=== PATIENT | male | born 1955 | race Caucasian/White ===

== ENCOUNTER 2019-01-24 18:32 | Inpatient (IN) | payer OTHER ==
[~2019-01-24] VITALS: Ht 167.6 cm; Wt 86.1 kg
[2019-01-24] MEDS ORDERED: IBUPROFEN 600 MG TAB PO ONE ×2 (18:48→19:00)
[2019-01-24 19:40] LABS: Calcium 9.5 mg/dL (8.5-10.1); Potassium 4.7 mmol/L (3.5-5.1)
[2019-01-24 19:43] LABS: Lactic Acid w/Reflex 2.5 mmol/L (0.4-2.0)
[2019-01-24 19:44] LABS: BUN/Creatinine Ratio 12.4; Bilirubin, Total 0.5 mg/dL (0.2-1.0); Total Protein 8.3 g/dL (6.4-8.2)
[2019-01-24 20:03] LABS: Hematocrit 39.9 % (41.0-53.0); Hemoglobin 13.5 g/dL (13.5-17.5); Mean Corpuscular Hemoglobin 32.3 pg (28.0-32.0); Mean Corpuscular Hgb Conc. 33.8 g/dL (32.0-36.0); Mean Corpuscular Volume 95.7 fL (80.0-100.0); Platelet Count (auto) 177 10^3/uL (140-450); Red Blood Cells 4.16 10^6/uL (4.5-5.90); Red Cell Distribution Width 12.6 % (11.8-14.3); White Blood Cell 9.4 10^3/uL (4.4-10.8)
[2019-01-24 20:07] LABS: Basophils % (manual) 0 (0.0-2.0); Blast Cells 0; Metamyelocytes % 0; Myelocytes % 0; Promyelocytes % 0; Reactive Lymphocytes 0
[2019-01-24] MEDS ORDERED: ACETAMINOPHEN 325 MG TAB PO ONE (20:15)
[2019-01-24 20:30] LABS: INR 0.95 (0.9-1.15); Partial Thromboplastin Time 24.5 sec (23.64-32.05)
[2019-01-24 20:48] LABS: Band Neutrophils % (manual) 2; Eosinophils % (manual) 1 (0-7); Lymphocytes % (manual) 10 (10.0-50.0); Monocytes % (manual) 5 (0-12)
[2019-01-24] MEDS ORDERED: cefTRIAXone 1GM/50ML D5W 50 ML IV ONE (21:45)
[2019-01-24 22:04] LABS: Urine Bacteria NONE SEEN /hpf (None Seen); Urine Blood Negative /uL (Negative); Urine Hyaline Cast FEW /lpf (0 - 2); Urine Mucus FEW (None Seen); Urine Specific Gravity 1.017 (1.001-1.035); Urine WBC 1 /hpf (0 - 3)
[2019-01-25] VITALS (7 sets, daily range): BP systolic 124–149; BP diastolic 61–88
[2019-01-25] MEDS ORDERED: TEMAZEPAM 15 MG CAP PO PRN (00:45)
[2019-01-25] MEDS ORDERED: HYDROcodone-ACET 5/325MG TAB PO PRN (00:45)
[2019-01-25] MEDS ORDERED: LEVOFLOXACIN 250MG 50 ML IV ONE (00:45)
[2019-01-25] MEDS ORDERED: ACETAMINOPHEN 325 MG TAB PO PRN (00:45)
[2019-01-25] MEDS ORDERED: DEXTROSE (50%) 50ML SYRG IV PRN (00:45)
[2019-01-25] MEDS ORDERED: ONDANSETRON HCL 4 MG/2 ML VIAL IV PRN (00:45)
[2019-01-25] MEDS ORDERED: SODIUM CHLORIDE 0.9% 500 ML IV ONE (00:45)
[2019-01-25] MEDS: SODIUM CHLORIDE 0.9% 1,000 ML IV SCH ×3 (00:49→21:30)
[2019-01-25] MEDS ORDERED: NITROGLYCERIN 0.4 MG SL TAB SL PRN (01:00)
[2019-01-25] MEDS ORDERED: MORPHINE SULF INJ 2 MG/ML SYRINGE 1ML IV PRN (01:00)
--- NOTE | 2019-01-25 02:00 | NUR ---
Telemetry admit from ER RANDA GUTIERREZ admitted to Telemetry unit. Patient oriented to Hoa Montanez, primary RN, unit, room, bed, and unit policies regarding patient care and visiting hours. Patient now on continuous telemetry monitoring, tele box # 16. Patient placed on bedside oxygen, weighed by bedscale and encouraged to call if they need something. All questions and concerns addressed, patient verbalized understanding.
[2019-01-25] MEDS: ACCU-CHEK COMFORT CURVE STRIP VI SCH ×4 (06:25→23:48)
[2019-01-25] MEDS: PANTOPRAZOLE 40 MG TAB PO SCH (06:26)
[2019-01-25] MEDS: InsuLIN REG 1unit/0.01ml Soln (100units/ml) SC SCH ×4 (06:36→23:49)
--- NOTE | 2019-01-25 09:00 | NUR ---
PT DISLODGED IV CATHETER FROM LAC#18, CATHETER APPEARS INTACT. DRESSING PLACED TO SITE, NO ACTIVE BLEEDING. IV INSERTED TO LEFT HAND #20, FLUSHES WELL, IV FLUIDS RESUMED PER ORDER, CATHETER SECURED. PT TOLERATED PROCEDURE WELL. BED LOCKED AND IN LOWEST POSITION, CALL LIGHT WITHIN REACH. WILL CONTINUE TO MONITOR.
[2019-01-25] MEDS: ASPirin 81 mg TAB PO SCH (10:07)
[2019-01-25] MEDS ORDERED: IPRATROPIUM BROM 0.5 MG/2.5ML INH SOL NEB ONE (12:30)
[2019-01-25] MEDS ORDERED: ALBUTEROL SULF 2.5 MG/0.5ML(0.5%) NEB SOLN NEB ONE (12:30)
--- NOTE | 2019-01-25 12:34 | NUR ---
DR RALPH IN TO SEE PT. EVALUATED PT. ORDER FOR BREATHING Tx INPUT. RT DEPT. PAGED, AWARE OF ORDER.
[2019-01-25] MEDS ORDERED: ALBUTEROL SULF 2.5 MG/0.5ML(0.5%) NEB SOLN NEB PRN (15:30)
--- NOTE | 2019-01-25 18:12 | NUR ---
assessment Per consult no PCP. Savanah gomez to see patient for PCP. Addendum: 01/25/19 at 1812 by Savanah Gonzalez Amended: Links added.
[2019-01-25] MEDS: ALBUTEROL SULF 2.5 MG/0.5ML(0.5%) NEB SOLN NEB SCH ×2 (18:19→22:35)
[2019-01-25] MEDS: IPRATROPIUM BROM 0.5 MG/2.5ML INH SOL NEB SCH ×2 (18:19→22:35)
[2019-01-25] MEDS ORDERED: RAMI2.5C33 PO (19:09)
[2019-01-25] MEDS ORDERED: SIMV-13 PO (19:09)
[2019-01-25] MEDS ORDERED: ATEN-60 PO (19:11)
[2019-01-25] MEDS ORDERED: GABA100C9 PO (19:11)
[2019-01-25] MEDS ORDERED: GLIP5TAB12 PO (19:12)
[2019-01-25] MEDS ORDERED: ASPI-404 PO (19:12)
[2019-01-25] MEDS: LEVOFLOXACIN 250MG 50 ML IV SCH (21:31)
[2019-01-25] MEDS: methylPREDNISolone SOD SUCC 125 MG/2 ML VL IV SCH (21:31)
[2019-01-26] MEDS: IPRATROPIUM BROM 0.5 MG/2.5ML INH SOL NEB SCH ×6 (02:48→22:21)
[2019-01-26] MEDS: ALBUTEROL SULF 2.5 MG/0.5ML(0.5%) NEB SOLN NEB SCH ×6 (02:48→22:21)
[2019-01-26 06:18] VITALS: BP 118/67
[2019-01-26] MEDS: ACCU-CHEK COMFORT CURVE STRIP VI SCH ×3 (06:30→20:00)
[2019-01-26] MEDS: PANTOPRAZOLE 40 MG TAB PO SCH (06:30)
[2019-01-26] MEDS: InsuLIN REG 1unit/0.01ml Soln (100units/ml) SC SCH ×3 (06:31→20:49)
[2019-01-26 06:46] LABS: Basophils # (auto) 0 uL; Basophils % (auto) 0.2 % (0.0-2.0); Eosinophils # (auto) 0 uL; Hemoglobin 12.1 g/dL (13.5-17.5); Lymphocytes # (auto) 0.3 uL; Lymphocytes % (auto) 4.2 % (10.0-50.0); Mean Corpuscular Hemoglobin 33.2 pg (28.0-32.0); Mean Corpuscular Hgb Conc. 34.5 g/dL (32.0-36.0); Mean Corpuscular Volume 96.3 fL (80.0-100.0); Monocytes # (auto) 0.2 uL; Monocytes % (auto) 2.5 % (0.0-12.0); Neutrophils # (auto) 7.3 uL; Neutrophils % (auto) 93.1 % (37.0-80.0); Nucleated Red Blood Cells % 0.1 %; Platelet Count (auto) 149 10^3/uL (140-450); Red Blood Cells 3.63 10^6/uL (4.5-5.90); Red Cell Distribution Width 12.8 % (11.8-14.3); White Blood Cell 7.8 10^3/uL (4.4-10.8)
--- NOTE | 2019-01-26 07:00 | NUR ---
OPENING SHIFT NOTE ASSUMED CARE OF THE PATIENT FROM THE LISW RN. THE PATIENT IS A&OX4. NO SIGNS OR SYMPTOMS OF DISTRESS. EDUCATED THE PATIENT ON POC AND PATIENT VERBALIZED UNDERSTANDING. THE PATIENT'S CALL LIGHT IS WITHIN REACH AND BED IS IN THE LOWEST, LOCKED POSITION. WILL ROUND HOURLY AND CONTINUE TO MONITOR.
[2019-01-26 07:34] LABS: BUN/Creatinine Ratio 12.2; Calcium 8.5 mg/dL (8.5-10.1); Potassium 4.9 mmol/L (3.5-5.1)
[2019-01-26 08:00] VITALS: BP 142/60
[2019-01-26] MEDS ORDERED: glipiZIDE 5 MG TAB PO ONE (11:15)
[2019-01-26] MEDS ORDERED: GABAPENTIN 100 MG CAP PO ONE (11:15)
[2019-01-26] MEDS: methylPREDNISolone SOD SUCC 125 MG/2 ML VL IV SCH ×2 (11:37→21:55)
[2019-01-26] MEDS: ASPirin 81 mg TAB PO SCH (11:37)
--- NOTE | 2019-01-26 11:38 | NUR ---
ELEVATED POC FIRST POC GLUCOSE WAS 413 MG/DL. THE SECOND POC GLUCOSE WAS 393 MG/DL. PATIENT ASYMPTOMATIC. WILL NOTIFY DR. RALPH AND CONTINUE TO MONITOR.
[2019-01-26 13:00] VITALS: BP 125/66
--- NOTE | 2019-01-26 16:04 | NUR ---
PAGED DR. NAPIER ELEVATED POC GLUCOSE. 472 MG/DL. DR. RALPH RETURNED PAGE AND ORDERED 20 UNITS HUMOLOG.
[2019-01-26] MEDS: GABAPENTIN 100 MG CAP PO SCH ×2 (16:08→21:55)
[2019-01-26] MEDS ORDERED: INSULIN LISPRO (HUMAN) 100 UNITS/ML ML SC ONE (16:15)
[2019-01-26 17:00] VITALS: BP 119/69
[2019-01-26] MEDS: SODIUM CHLORIDE 0.9% 1,000 ML IV SCH (17:26)
--- NOTE | 2019-01-26 17:33 | NUR ---
ELEVATED POC GLUCOSE SCHEDULED POC GLUCOSE 484 MG/DL AND SECOND CHECK 488 MG/DL. PATIENT WAS GIVEN 1 TIME ORDER HUMALOG 20 UNITS SUB-Q. WILL NOTIFY HOSPITALIST.
--- NOTE | 2019-01-26 17:44 | NUR ---
HOSPITALIST RETURNED PAGE THIEN NEGRON HOSPITALIST, ORDERED 6 UNITS REGULAR INSULIN IV TO BE GIVEN NOW AND ACCU-CHECKS ON AN AGGRESSIVE SCALE Q4HRS. WILL PLACE ORDERS, CARRYOUT AND CONTINUE TO MONITOR.
[2019-01-26] MEDS ORDERED: DEXTROSE (50%) 50ML SYRG IV PRN (17:45)
[2019-01-26] MEDS ORDERED: InsuLIN REG 1unit/0.01ml Soln (100units/ml) IV ONE (17:45)
--- NOTE | 2019-01-26 18:51 | NUR ---
GLUCOSE RECHECK 479 MG/DL. WILL PAGE HOSPITALIST
--- NOTE | 2019-01-26 18:55 | NUR ---
HOSPITALIST RETURNED PAGE THE HOSPITALIST, THIEN NEGRON, ORDERED ONE TIME DOSE LANTUS 8 UNITS SUB-Q. WILL PLACE ORDER AND ENDORSE TO INVENTORY CONTROL MANAGER.
[2019-01-26] MEDS ORDERED: INSULIN LANTUS (GLARGINE) 1 /0.01ml (100units/ml) SC ONE (19:00)
--- NOTE | 2019-01-26 19:10 | NUR ---
Opening Shift Note Received report from day shift nurse, Jazlyn. Assumed care of patient. Patient awake, alert, and orientated x 4. No S/S of distress/SOB or pain. Bed is in lowest position with side rails up x 2. Bed brakes locked and call light is with in reach. HOB is 30 degrees. Instructed on POC and to call for assist PRN, will continue to monitor for changes Q1hr and PRN.
--- NOTE | 2019-01-26 20:35 | NUR ---
Critical lab value blood sugar 481. will page hospitalist.
--- NOTE | 2019-01-26 20:42 | NUR ---
Hospitalist hospitalist made aware of blood sugar 481. MD ordered to continue with the aggressive sliding scale protocol with no addition orders.
[2019-01-26] MEDS: LEVOFLOXACIN 250MG 50 ML IV SCH (21:55)
[2019-01-26 22:00] VITALS: BP 113/70
[2019-01-27] MEDS: ACCU-CHEK COMFORT CURVE STRIP VI SCH ×4 (00:12→12:01)
[2019-01-27] MEDS: InsuLIN REG 1unit/0.01ml Soln (100units/ml) SC SCH ×4 (00:25→12:05)
[2019-01-27] MEDS: IPRATROPIUM BROM 0.5 MG/2.5ML INH SOL NEB SCH ×3 (02:00→10:56)
[2019-01-27] MEDS: ALBUTEROL SULF 2.5 MG/0.5ML(0.5%) NEB SOLN NEB SCH ×3 (02:00→10:56)
[2019-01-27 05:00] VITALS: BP 122/71
[2019-01-27] MEDS: GABAPENTIN 100 MG CAP PO SCH (05:52)
[2019-01-27] MEDS: PANTOPRAZOLE 40 MG TAB PO SCH (05:53)
[2019-01-27] MEDS ORDERED: glipiZIDE 5 MG TAB PO SCH (07:00)
--- NOTE | 2019-01-27 07:00 | NUR ---
OPENING SHIFT NOTE ASSUMED CARE OF THE PATIENT FROM THE SUPERVISOR BROADLOOM RN. THE PATIENT IS A&OX4, NO SIGNS OR SYMPTOMS OF DISTRESS. EDUCATED THE PATIENT ON POC AND PATIENT VERBALIZED UNDERSTANDING. THE PATIENT'S CALL LIGHT IS WITHIN REACH AND BED IS IN THE LOWEST, LOCKED POSITION. WILL ROUND HOURLY AND CONTINUE TO MONITOR.
--- NOTE | 2019-01-27 07:00 | NUR ---
closing notes endorsed care to day shift nurse, Jazlyn.
[2019-01-27 07:15] LABS: Albumin 2.7 g/dL (3.4-5.0); BUN/Creatinine Ratio 13.2; Calcium 8.5 mg/dL (8.5-10.1); Potassium 4.2 mmol/L (3.5-5.1)
[2019-01-27 07:18] LABS: Bilirubin, Total 0.4 mg/dL (0.2-1.0); Total Protein 6.7 g/dL (6.4-8.2)
--- NOTE | 2019-01-27 07:23 | NUR ---
LABS CANCELLED/NO CALL TO RECOLLECT LOOKED IN LABS FOR URINE COLLECTED YESTERDAY AND RESULTS NOT FOUND. CALLED LAB AFTER FINDING THEY HAD BEEN CANCELLED BY THE LAB. THE SYSTEMS TESTING LABORATORY TECHNICIAN DID NOT UNDERSTAND WHY THEY HAD BEEN CANCELLED. WILL RECOLLECT AND RESEND URINE. TECH WAITING TO RUN URINE.
[2019-01-27] MEDS: SODIUM CHLORIDE 0.9% 1,000 ML IV SCH (07:52)
[2019-01-27 08:00] VITALS: BP 131/64
[2019-01-27 09:00] VITALS: BP 131/64
[2019-01-27 09:19] LABS: Micro Albumin 13.9 mg/L (0-30.0)
[2019-01-27] MEDS: ASPirin 81 mg TAB PO SCH (09:27)
[2019-01-27] MEDS: methylPREDNISolone SOD SUCC 125 MG/2 ML VL IV SCH (09:27)
[2019-01-27] MEDS: LEVOFLOXACIN 250MG 50 ML IV SCH (10:58)
--- NOTE | 2019-01-27 10:58 | NUR ---
LEVAQUIN GIVEN EARLY PER DR. RALPH.
[2019-01-27] MEDS ORDERED: SODIUM PHOSPHATES 20 MEQ in SODIUM CHL 0.9% 100 ML IV ONE (12:15)
[2019-01-27 13:00] VITALS: BP 121/71
--- NOTE | 2019-01-27 15:10 | NUR ---
Discharge instructions given as ordered. Encourage to follow up with PMD as instructed. All questions and concerns addressed. Patient verbalized understanding. Patient was given information for contacting Dr. Valles for an appointment within 1 week of discharge and for Dr. Lewis for 2 weeks after discharge. Medication reconciliation form completed and copy given to patient. Home medications held in Pharmacy returned to patient, and needed vaccines given. IV removed with catheter intact, pressure dressing applied. Telemetry unit returned to ICU. Patient taken to vehicle via wheelchair with all personal belongings, accompanied by staff and family member. No distress noted at time of departure.
== END 2019-01-27 15:10 | disposition home or self-care (01) | DRG 871 ==
LOC: ER 18:32 → EDBD 18:32 → TELE 18:33 → TELE-EAST 01-25 02:01
PROVIDERS: ADMIT Nurse Practitioner; ATTEND Internal Medicine
DX: A41.9 Sepsis, unspecified organism (principal); J18.9 Pneumonia, unspecified organism; N17.0 Acute kidney failure with tubular necrosis; E87.1 Hypo-osmolality and hyponatremia; I25.10 Atherosclerotic heart disease of native coronary artery without angina pectoris; E11.40 Type 2 diabetes mellitus with diabetic neuropathy, unspecified; G47.00 Insomnia, unspecified; E78.5 Hyperlipidemia, unspecified; J20.9 Acute bronchitis, unspecified; E11.65 Type 2 diabetes mellitus with hyperglycemia; N18.3 Chronic kidney disease, stage 3 (moderate); E86.0 Dehydration; E11.21 Type 2 diabetes mellitus with diabetic nephropathy; E11.22 Type 2 diabetes mellitus with diabetic chronic kidney disease; Z95.1 Presence of aortocoronary bypass graft; Z72.89 Other problems related to lifestyle; Z95.5 Presence of coronary angioplasty implant and graft; Z82.3 Family history of stroke; Z82.49 Family history of ischemic heart disease and other diseases of the circulatory system; Z83.3 Family history of diabetes mellitus; Z79.899 Other long term (current) drug therapy
CPT/HCPCS: 36415; 71045; 76775; 80048; 80053; 81001; 82043; 82306; 82570; 82962; 83036; 83605; 83880; 83970; 84100; 84300; 84484; 85007; 85025; 85027; 85610; 85730; 86703; 87040; 87086; 87804; 93005; 94640; 96361; 96365; 96367; G0378; J0696; J1815; J7042

== ENCOUNTER 2019-11-08 12:50 | Emergency (ER) | payer OTHER ==
[~2019-11-08] VITALS: Ht 167.6 cm; Wt 81.6 kg
[~2019-11-08 12:50] MED LIST: ASPI-543 PO; ATEN-60 PO; GABA100C9 PO; GLIP5TAB12 PO; RAMI2.5C33 PO; SIMV-13 PO
[2019-11-08] MEDS ORDERED: SODIUM CHLORIDE 0.9% 1,000 ML IV ONE (13:07)
[2019-11-08] MEDS ORDERED: LORazepam 2MG/ML-1ML VIAL IV ONE (13:15)
[2019-11-08 14:23] LABS: Basophils # (auto) 0 10 ^3/uL (0-0.2); Basophils % (auto) 0.8 % (0.0-2.0); Eosinophils # (auto) 0.1 10 ^3/uL (0-0.8); Eosinophils % (auto) 1.6 % (0.0-7.0); Hematocrit 30.6 % (41.0-53.0); Hemoglobin 10.3 g/dL (13.5-17.5); Lymphocytes # (auto) 1.2 10 ^3/uL (0.4-5.4); Lymphocytes % (auto) 34.7 % (10.0-50.0); Mean Corpuscular Hemoglobin 32.4 pg (28.0-32.0); Mean Corpuscular Hgb Conc. 33.7 g/dL (32.0-36.0); Mean Corpuscular Volume 96.3 fL (80.0-100.0); Monocytes # (auto) 0.5 10 ^3/uL (0-1.3); Monocytes % (auto) 15.6 % (0.0-12.0); Neutrophils # (auto) 1.7 10 ^3/uL (1.6-8.6); Neutrophils % (auto) 47.3 % (37.0-80.0); Platelet Count (auto) 99 10^3/uL (140-450); Red Blood Cells 3.18 10^6/uL (4.5-5.90); White Blood Cell 3.5 10^3/uL (4.4-10.8)
[2019-11-08 14:39] LABS: Albumin 3.5 g/dL (3.4-5.0); Potassium 4.4 mmol/L (3.5-5.1)
[2019-11-08 14:42] LABS: BUN/Creatinine Ratio 18.3; Bilirubin, Total 0.5 mg/dL (0.2-1.0); Total Protein 7.3 g/dL (6.4-8.2)
[2019-11-08 17:30] VITALS: BP 157/56
[2019-11-08 18:27] LABS: Urine WBC None Seen /hpf (0 - 3)
[2019-11-08 18:45] LABS: Urine Bacteria FEW /hpf (None Seen); Urine Blood Negative /uL (Negative); Urine Specific Gravity 1.006 (1.001-1.035)
[2019-11-08 18:54] LABS: Amphetamine Screen, Urine NEGATIVE (NEGATIVE); Barbiturate Scree,Urine NEGATIVE (NEGATIVE); Benzodiazephine Screen, Urine NEGATIVE (NEGATIVE); Cannabinoid Screen, Urine NEGATIVE (NEGATIVE); Cocaine Screen, Urine NEGATIVE (NEGATIVE); Opiate Scree,Urine NEGATIVE (NEGATIVE); Phencyclidine Screen, Urine NEGATIVE (NEGATIVE)
== END 2019-11-08 17:46 | disposition home or self-care (01) ==
LOC: EDBD 12:50 → ER 12:50 → EDUNIT# 12:50 → ER 17:46
DX: F10.239 Alcohol dependence with withdrawal, unspecified (principal); E11.9 Type 2 diabetes mellitus without complications; I25.2 Old myocardial infarction; I25.810 Atherosclerosis of coronary artery bypass graft(s) without angina pectoris; Y90.9 Presence of alcohol in blood, level not specified
CPT/HCPCS: 36415; 80053; 80307; 80320; 81001; 85025; 93005; 96361; 96374; 99285; J2060; J7030